=== PATIENT | male | born 1980 | race American Indian/Alaskan Native ===

== ENCOUNTER 2017-03-28 16:06 | Emergency (ER) | payer OTHER ==
[2017-03-28] MEDS ORDERED: TORADOL IM ONE (16:20)
[2017-03-28 16:22] VITALS: BP 126/73
--- NOTE | 2017-03-28 16:23 | Emergency Department Report ---
Stated Complaint: LEFT ARM INJURY Time Seen by Provider: 03/28/17 16:19 - HPI History of Present Illness: PT c/o L arm injury at 0930. PT states pain and swelling have progressively gotten worse. - ROS Review of Systems: - shoulder pain - Exam Physical Exam: + swelling to LUE + decrease rom to L hand, L wrist MSE screening note: Focused history and physical exam performed. Due to findings the following was ordered: xr, meds ED Disposition for MSE Condition: Stable
--- NOTE | 2017-03-28 17:22 | Emergency Department Report ---
ED Upper Extremity Inj HPI - General Chief Complaint: Extremity Injury, Upper Stated Complaint: LEFT ARM INJURY Time Seen by Provider: 03/28/17 16:19 Source: patient Mode of arrival: Ambulatory Limitations: No Limitations - History of Present Illness Initial Comments: This is a 36-year-old male nontoxic, well nourished in appearance, no acute signs of distress presents to the ED complaining of left hand/wrist pain status post direct blow. Patient stated this morning 9:30 a.m. he was moving washing machine down stairs with slit and hit his left hand/wrist region. Patient denies any numbness or tingling. Patient stated pain has gradually increased gradually which is why he came into emergency room because the pain is unbearable now. Patient he has limited range of motion due to pain. Patient denies any joint redness, joint swelling, fever, chills, nausea vomiting, just been short of breath. Patient denies any allergies or past medical history. MD Complaint: Injury to:: left, wrist, hand -: This morning Other Extremity Injury: Hand: Left, Wrist: Left Other Injuries: none Place: work Severity scale (0 -10): 8 Improves With: none Worsens With: none Context: direct blow Associated Symptoms: denies other symptoms. denies: weakness, numbness, neck pain, suspects foreign body, nausea/vomiting, heard/felt popping sensat - Related Data Previous Rx's Medication Instructions Recorded Last Taken Type Ibuprofen [Motrin 600 MG tab] 600 mg PO Q8H PRN #30 tablet 03/28/17 Unknown Rx Allergies Allergy/AdvReac Type Severity Reaction Status Date / Time No Known Allergies Allergy Unverified 03/28/17 16:15 ED Review of Systems ROS: Stated complaint: LEFT ARM INJURY Other details as noted in HPI Constitutional: denies: chills, fever Eyes: denies: eye pain, eye discharge, vision change ENT: denies: ear pain, throat pain Respiratory: denies: cough, shortness of breath, wheezing Cardiovascular: denies: chest pain, palpitations Endocrine: no symptoms reported Gastrointestinal: denies: abdominal pain, nausea, diarrhea Genitourinary: denies: urgency, dysuria Musculoskeletal: denies: back pain, joint swelling, arthralgia Skin: denies: rash, lesions Neurological: denies: headache, weakness, paresthesias Psychiatric: denies: anxiety, depression Hematological/Lymphatic: denies: easy bleeding, easy bruising ED Past Medical Hx - Past Medical History Previous Medical History?: No - Surgical History Past Surgical History?: No - Social History Smoking Status: Never Smoker Substance Use Type: Marijuana - Medications Home Medications: Home Medications Medication Instructions Recorded Confirmed Last Taken Type Ibuprofen [Motrin 600 MG tab] 600 mg PO Q8H PRN #30 tablet 03/28/17 Unknown Rx ED Physical Exam - General Limitations: No Limitations General appearance: alert, in no apparent distress - Head Head exam: Present: atraumatic, normocephalic, normal inspection - Eye Eye exam: Present: normal appearance, PERRL, EOMI. Absent: scleral icterus, conjunctival injection, nystagmus, periorbital swelling, periorbital tenderness Pupils: Present: normal accommodation - ENT ENT exam: Present: normal exam, normal orophraynx, mucous membranes moist, TM's normal bilaterally, normal external ear exam - Neck Neck exam: Present: normal inspection, full ROM. Absent: tenderness, meningismus, lymphadenopathy, thyromegaly - Respiratory Respiratory exam: Present: normal lung sounds bilaterally. Absent: respiratory distress, wheezes, rales, rhonchi, stridor, chest wall tenderness, accessory muscle use, decreased breath sounds, prolonged expiratory - Cardiovascular Cardiovascular Exam: Present: regular rate, normal rhythm, normal heart sounds. Absent: bradycardia, tachycardia, irregular rhythm, systolic murmur, diastolic murmur, rubs, gallop - GI/Abdominal GI/Abdominal exam: Present: soft, normal bowel sounds. Absent: distended, tenderness, guarding, rebound, rigid, diminished bowel sounds - Rectal Rectal exam: Present: deferred - Extremities Exam Extremities exam: Present: normal inspection, full ROM, tenderness, normal capillary refill. Absent: pedal edema, joint swelling, calf tenderness - Expanded Upper Extremity Exam Left General: Present: normal inspection Shoulder Exam: Present: normal inspection, full ROM Upper Arm exam: Present: normal inspection, full ROM Elbow exam: Present: normal inspection, full ROM Forearm Wrist exam: Present: normal inspection, full ROM, tenderness. Absent: swelling, abrasion, laceration, ecchymosis, deformity, crepidus, dislocation, erythema, tenderness over anatomical snuff box, pain with axial thumb loading Hand Wrist exam: Present: normal inspection, full ROM, tenderness, swelling. Absent: abrasion, laceration, ecchymosis, deformity, crepidus, dislocation, erythema, amputation, nail avulsion, subungual hematoma Hand L/R Back: 1 - decreased ROM and tenderness 2 - swelling with tenderness Neuro motor exam: Present: wrist extension intact, thumb opposition intact, thumb IP flexion intact, thumb adduction intact, fingers 2-5 abduction intact Neurosensory exam: Present: 2-point discrimination, radial nerve intact, ulnar nerve intact, median nerve intact Vascular: Present: vascular compromise, normal capillary refill, radial pulse, brachial pulse, ulnar pulse - Back Exam Back exam: Present: normal inspection, full ROM. Absent: tenderness, CVA tenderness (R), CVA tenderness (L), muscle spasm, paraspinal tenderness, vertebral tenderness, rash noted - Neurological Exam Neurological exam: Present: alert, oriented X3, CN II-XII intact, normal gait, reflexes normal - Psychiatric Psychiatric exam: Present: normal affect, normal mood - Skin Skin exam: Present: warm, dry, intact, normal color. Absent: rash ED Course Vital Signs 03/28/17 16:15 Temperature 99.2 F Pulse Rate 60 Respiratory 18 Rate Blood Pressure 126/73 O2 Sat by Pulse 98 Oximetry - Reevaluation(s) Reevaluation #1: 03/28/17 17:25 Patient is speaking in full sentences with no signs of distress noted. Reevaluation #2: Post splint assessment; neurovascular intact with no signs of numbness or tingling, patient denies being tight, with normal capillary refill at 2 seconds. ED Medical Decision Making - Radiology Data Radiology results: report reviewed interpreted by me: Dr. Piña Ulnar styloid process deformity which could be old healed fracture. 4th finger old vs new tiny fracture seen. No insufficiency. There is a nondisplaced fracture through the waist of the scaphoid bone. - Medical Decision Making 36-year-old male that presents with nondisplaced fracture through the waist of the scaphoid bone, fourth finger fracture. Patient agrees to having old wrist fracture that was healed and had a cast. Patient stated it was examined by myself. Neurovascular intact. There is no signs of carpal tunnel. Patient received a short arm splint with third and fourth finger. Post splint assessment ; neurovascular intact with no signs of numbness or tingling, patient denies being tight, with normal capillary refill at 2 seconds. Patient was instructed to rest and elevate actually. Patient was instructed to follow-up with a orthopedic doctor in 24 hours or if symptoms worsen and continue return to emergency room as soon as possible possible. Patient is hemodynamically stable with stable vital signs. Patient states he is feeling better. At time time of discharge, the patient does not seem toxic or ill in appearance. No acute signs of distress noted. Patient agrees to discharge treatment plan of care. No further questions noted by the patient. Critical care attestation.: If time is entered above; I have spent that time in minutes in the direct care of this critically ill patient, excluding procedure time. ED Disposition Clinical Impression: Scaphoid fracture of wrist Qualifiers: Encounter type: initial encounter Scaphoid bone location: unspecified portion of scaphoid Fracture type: closed Fracture alignment: nondisplaced Laterality: left Qualified Code(s): S62.002A - Unspecified fracture of navicular [scaphoid] bone of left wrist, initial encounter for closed fracture Finger fracture, left Qualifiers: Encounter type: initial encounter Finger: ring finger Fracture type: closed Phalanx: unspecified phalanx Fracture alignment: nondisplaced Qualified Code(s) : S62.605A - Fracture of unspecified phalanx of left ring finger, initial encounter for closed fracture Disposition: DC- TO HOME OR SELFCARE Is pt being admited?: No Does the pt Need Aspirin: No Condition: Stable Instructions: Ibuprofen (By mouth), Splint Care (ED), RICE Therapy (ED) Additional Instructions: Follow-up with Dr. Landry in 24 hours or if symptoms worsen and continue return to emergency room as soon as possible possible. Prescriptions: Ibuprofen [Motrin 600 MG tab] 600 mg PO Q8H PRN #30 tablet PRN Reason: Pain Referrals: PRIMARY CAREMD [Primary Care Provider] - 3-5 Days LYNNE LANDRY MD [Staff Physician] - 3-5 Days [facility] [Outside] - 3-5 Days [facility] [Outside] - 3-5 Days Forms: Work/School Release Form(ED)
--- NOTE | 2017-03-28 18:18 | XRay Report ---
FINAL REPORT PROCEDURE: XR FOREARM LT TECHNIQUE: Two views of the left forearm are obtained HISTORY: LEFT ARM pain sp injury COMPARISON: No prior studies are available for comparison. FINDINGS: There is no fracture or dislocation. No arthritic changes are seen. Soft tissue swelling is seen. IMPRESSION: No fracture is seen.
--- NOTE | 2017-03-28 18:21 | XRay Report ---
FINAL REPORT PROCEDURE: XR HAND 3+V LT TECHNIQUE: Three views of the left hand are obtained HISTORY: LEFT HAND pain sp injury COMPARISON: No prior studies are available for comparison. FINDINGS: Soft tissue swelling is seen. Tiny arthritic calcification or calcified loose body is seen in the region of the triangular fibrocartilage. There deformity of the ulnar styloid process which could be from old healed fracture. In the dorsum of the base of the distal phalanx of the 4th finger could be a new or old tiny fracture fragment. No dislocation is seen. There is a nondisplaced fracture through the waist of the scaphoid bone. IMPRESSION: New versus old tiny fracture fragment is seen associated with the dorsum of the base of the distal phalanx of the 4th finger. There is a nondisplaced fracture through the waist of the scaphoid bone.
== END 2017-03-28 18:57 | disposition home or self-care (01) ==
LOC: ED 16:06
DX: S62.002A Unspecified fracture of navicular [scaphoid] bone of left wrist, initial encounter for closed fracture (principal); S62.605A Fracture of unspecified phalanx of left ring finger, initial encounter for closed fracture; F12.10 Cannabis abuse, uncomplicated; W22.8XXA Striking against or struck by other objects, initial encounter; Y93.9 Activity, unspecified; Y99.9 Unspecified external cause status; Y92.89 Other specified places as the place of occurrence of the external cause
CPT/HCPCS: 29125; 73090; 73130; 96372; 99283; J1885